=== PATIENT | female | born 1945 | race Caucasian/White ===

== ENCOUNTER 2019-06-29 21:51 | Emergency (ER) | payer MEDICAID ==
[~2019-06-29] VITALS: Ht 152.4 cm; Wt 58.2 kg
[2019-06-29] MEDS ORDERED: OMEP10 PO (22:17)
[2019-06-29] MEDS ORDERED: FURO20 PO (22:17)
[2019-06-30] MEDS ORDERED: LORazepam 1 MG TABLET PO ONE (03:00)
[2019-06-30 08:50] VITALS: BP 113/70
== END 2019-06-30 09:12 | disposition home or self-care (01) ==
LOC: EDBD 21:55 → EMS 21:55 → EDSEX 21:55 → EMS 06-30 09:12
DX: F41.9 Anxiety disorder, unspecified (principal); R60.9 Edema, unspecified; Z86.73 Personal history of transient ischemic attack (TIA), and cerebral infarction without residual deficits; Z79.899 Other long term (current) drug therapy; Z59.0 Homelessness
CPT/HCPCS: 93005